=== PATIENT | female | born 1965 | race Caucasian/White ===

== ENCOUNTER 2019-05-14 00:16 | Emergency (ER) | payer BC ==
[2019-05-14] MEDS ORDERED: Metoclopramide IV* 5 MG/ML 2 ML VIAL IV SLOW PU ONE (02:49)
[2019-05-14] MEDS ORDERED: NS 0.9% 1000 ML** 1,000 ML IV ONE (02:49)
[2019-05-14] MEDS ORDERED: Morphine 4 MG/ML VIAL (1 ml) 4 MG/ML VIAL IV ONE ×2 (02:49→09:17)
[2019-05-14] MEDS ORDERED: Pantoprazole IV* 40 MG IV ONE (02:50)
[2019-05-14] MEDS ORDERED: Al Hydrox/Mg Hydrox/Simet LIQ* 30 ML UDC PO ONE ×2 (02:50→09:18)
[2019-05-14] MEDS ORDERED: Lidocaine 2% VISCOUS* 15 ML UDC PO ONE (02:50)
[2019-05-14 03:41] LABS: ABS Eosinophils 0.1 10^3/ul (0-0.6); ABS Lymphocytes 1.2 10^3/ul (1.0-4.8); ABS Monocytes 0.7 10^3/ul (0-0.8); ABS Neutrophils 7.2 10^3/ul (1.5-7.7); Eosinophil % 0.8 %; Hematocrit 44 % (35-47); Hemoglobin 14.5 g/dL (12.0-16.0); Lymphocyte % 12.8 %; Mean Corpuscular HGB Conc 33 g/dL (31-36); Mean Corpuscular Hemoglobin 28 pg (27-31); Mean Corpuscular Volume 85 fL (80-97); Mean Platelet Volume 8.9 fL (7.4-10.4); Platelet Count 238 10^3/uL (150-450); Red Blood Count 5.18 10^6 /uL (3.70-4.87); Red Cell Distribution Width 14 % (10-15); White Blood Count 9.1 10^3/uL (3.5-10.8)
[2019-05-14 03:51] LABS: Activated Partial Thrombo Time 37.4 seconds (26.0-38.0); INR 1.1 (0.82-1.09)
[2019-05-14 04:07] LABS: Albumin 4.3 g/dL (3.2-5.2); Albumin/Globulin Ratio 1.3 (1-3); BUN/Creatinine Ratio 12.1 (8-20); C Reactive Protein 40.08 mg/L (<8.01); Calcium 9.8 mg/dL (8.6-10.3); EGFR African American 58.7 (>60); EGFR Non-African American 48.5 (>60); Globulin 3.4 g/dL (2-4); Potassium 3.7 mmol/L (3.5-5.0); Total Bilirubin 0.5 mg/dL (0.2-1.0); Total Protein 7.7 g/dL (6.4-8.9)
--- NOTE | 2019-05-14 07:11 | ED ---
Progress - Progress Note Progress Note: This pt is a sign-out from Dr. Constantino to Dr. Rosa at shift change on 05/04/19 at 0700, pending disposition, awaiting US and lab results. I introduced myself to pt's - pt sleeping, NAD Gallbladder US, as read by radiologist IMPRESSION: Normal sonographic appearance of the gallbladder. Dr. Rosa has reviewed this report. Re-Evaluation - Re-Evaluation First Eval Re-Evaluation Time: 07:07 Comment: Saw pt and she is resting. Pt is waiting for an ultrasound and second troponin. Second Eval Re-Evaluation Time: 08:46 Comment: Reviewed results with the patient. Had a very long conversation with the patient. Pt with a h/o gastritis, inflammation. Pt states she had a endoscope in [place] in January - tool prilosec for 1 month with improvement- no intermittently take Pepcid. Pt took yesterday without improvement. Pt is anxious to go home because pain recurring - pt declined offer for OBV admission. After length discussionof food triggers, treatment approaches - will mogul operator her morphine and Maalox now with bland po. Pt was offered admission but she declined. Plan is to discharge patient with rx for prilosec. Pt to return of sx return Third Eval Re-Evaluation Time: 10:02 Change: Improved Comment: Patient is feeling better and is more comfortable. Patient is ready to go home. Course/Dx - Diagnoses Provider Diagnoses: Epigastric pain Discharge - Sign-Out/Discharge Documenting (check all that apply): Patient Departure - Discharge home, Receiving Sign-Out Receiving patient FROM: Ky Constantino Patient Received Moderate/Deep Sedation with Procedure: No - Discharge Plan Condition: Good Disposition: HOME Prescriptions: HYDROcodone/ACETAMIN 5-325 MG* [Spring 5-325 TAB*] 12 tab PO Q8H PRN #10 tab MDD 6 PRN Reason: Severe Pain Omeprazole CAP (NF) [Prilosec CAP* 20 MG] 40 mg PO DAILY #28 zach. Patient Education Materials: Epigastric Pain (ED) Referrals: [facility]ICIAN REFERRAL [Outside] Kimmie Jarrell MD [Medical Doctor] - Additional Instructions: - take prilosec exactly as prescribed - eat small, bland portion of food every 2-3 hours - avoid spicy food, acidic food, tomato based food, citric food, caffinate and carbonate beverages - Okay to take Malaox every 6 hours - It is strongly recommended you contact the physician referral center for assistance establishing with a new primary care provider as well as consider seeing a local car dropper - alternatively, you should contact your GI specialist in [place] today. If your pain is uncontrolled, you have uncontrolled vomiting, fevers, or other concerns it is recommended you return to the emergency department f - Billing Disposition and Condition Condition: GOOD Disposition: Home - Attestation Statements Document Initiated by Noris: Yes Documenting Scribe: Shirley Baird Provider For Whom Tomibsonia is Documenting (Include Credential): Fang Rosa MD Scribe Attestation: Shirley George, scribed for Fang Rosa MD on 05/15/19 at 0339. Scribe Documentation Reviewed: Yes Provider Attestation: The documentation as recorded by the Shirley mcduffie accurately reflects the service I personally performed and the decisions made by me, Fang Rosa MD Status of Scribe Document: Viewed
--- NOTE | 2019-05-14 07:30 | ED ---
HPI Chest Pain - HPI Summary HPI Summary: This patient is a 53 year old F presenting to [facility] with a chief complaint of worsening CP since last night. Pt states this CP radiates to her back sometimes. Patient reports burping, epigastric/RUQ/right upper back pain, and photophobia. Patient denies N/V/D, fever. The patient rates the pain 6/10 in severity. Symptoms aggravated by nothing. Symptoms alleviated by nothing. Pt previously had surgery for ruptured appendix. - History of Current Complaint Chief Complaint: EDAbdPain Time Seen by Provider: 05/14/19 02:39 Hx Obtained From: Patient Onset/Duration: Started Days Ago - 1 Timing: Lasting Days - 1 Initial Severity: Moderate Current Severity: Moderate Pain Intensity: 6 Pain Scale Used: 0-10 Numeric Chest Pain Radiates: Yes Chest Pain Radiates To:: Back - sometimes Aggravating Factor(s): Nothing Alleviating Factor(s): Nothing Associated Signs and Symptoms: Positive: Chest Pain, Abdominal Pain - epigastric /RUQ, Other: - positive - burping, right upper back pain, photophobia. negative - diarrhea. Negative: Fever, Nausea, Vomiting - Additional Pertinent History Primary Care Physician: [id number] - Allergy/Home Medications Allergies/Adverse Reactions: Allergies Allergy/AdvReac Type Severity Reaction Status Date / Time tetracycline Allergy Headache Verified 05/14/19 00:25 PMH/Surg Hx/FS Hx/Imm Hx Previously Healthy: No Endocrine/Hematology History: Denies: Hx Diabetes Cardiovascular History: Denies: Hx Hypertension, Hx Pacemaker/ICD Respiratory History: Denies: Hx Asthma Sensory History: Reports: Hx Contacts or Glasses Denies: Hx Hearing Aid Opthamlomology History: Reports: Hx Contacts or Glasses Psychiatric History: Denies: Hx Panic Disorder - Surgical History Surgical History: Yes Surgery Procedure, Year, and Place: Appendectomy in 2017 Infectious Disease History: No Infectious Disease History: Denies: Traveled Outside the [place] in Last 30 Days - Family History Known Family History: Positive: None Family History: FHx of glaucoma - Social History Alcohol Use: Occasionally Hx Substance Use: No Substance Use Type: Reports: None Hx Tobacco Use: Yes Smoking Status (MU): Former Smoker Review of Systems Negative: Fever Positive: Photophobia Positive: Chest Pain - sometimes radiates to her back Respiratory: Other - positive - burping Positive: Abdominal Pain - epigastric/RUQ. Negative: Vomiting, Diarrhea, Nausea Musculoskeletal: Other - positive - right upper back pain All Other Systems Reviewed And Are Negative: Yes Physical Exam - Summary Physical Exam Summary: VITAL SIGNS: Reviewed. GENERAL: Patient is a well-developed and nourished FEMALE who is lying comfortable in the stretcher. Patient is not in any acute respiratory distress. HEAD AND FACE: No signs of trauma. No ecchymosis, hematomas or skull depressions. No sinus tenderness. EYES: PERRLA, EOMI x 2, No injected conjunctiva, no nystagmus. EARS: Hearing grossly intact. Ear canals and tympanic membranes are within normal limits. MOUTH: Oropharynx within normal limits. NECK: Supple, trachea is midline, no adenopathy, no JVD, no carotid bruit, no c- spine tenderness, neck with full ROM CHEST: Symmetric, no tenderness at palpation LUNGS: Clear to auscultation bilaterally. No wheezing or crackles. CVS: Regular rate and rhythm, S1 and S2 present, no murmurs or gallops appreciated. ABDOMEN: Soft, epigastric tenderness. No signs of distention. No rebound no guarding, and no masses palpated. Bowel sounds are normal. EXTREMITIES: FROM in all major joints, no edema, no cyanosis or clubbing. NEURO: Alert and oriented x 3. No acute neurological deficits. Speech is normal and follows commands. SKIN: Dry and warm Triage Information Reviewed: Yes Vital Signs On Initial Exam: Initial Vitals Temp Pulse Resp BP Pulse Ox 98.2 F 120 20 144/99 96 05/14/19 00:20 05/14/19 00:20 05/14/19 00:20 05/14/19 00:20 05/14/19 00:20 Vital Signs Reviewed: Yes Diagnostics - Vital Signs Vital Signs Temp Pulse Resp BP Pulse Ox 05/14/19 06:52 99 F 05/14/19 06:51 99 135/87 99 05/14/19 05:00 129/78 05/14/19 04:37 89 146/84 97 05/14/19 04:07 94 124/86 94 05/14/19 04:01 95 93 05/14/19 03:37 107 150/98 98 05/14/19 03:27 16 05/14/19 03:01 14 05/14/19 02:59 9 05/14/19 00:20 98.2 F 120 20 144/99 96 - Laboratory Lab Results: Lab Results 05/14/19 05/14/19 05/14/19 Range/Units 03:11 03:11 03:11 WBC 9.1 (3.5-10.8) 10^3/uL RBC 5.18 H (3.70-4.87) 10^6 /uL Hgb 14.5 (12.0-16.0) g/dL Hct 44 (35-47) % MCV 85 (80-97) fL MCH 28 (27-31) pg MCHC 33 (31-36) g/dL RDW 14 (10-15) % Plt Count 238 (150-450) 10^3/uL MPV 8.9 (7.4-10.4) fL Neut % (Auto) 78.7 % Lymph % (Auto) 12.8 % [place] % (Auto) 7.4 % Eos % (Auto) 0.8 % Baso % (Auto) 0.3 % Absolute Neuts (auto) 7.2 (1.5-7.7) 10^3/ul Absolute Lymphs (auto) 1.2 (1.0-4.8) 10^3/ul Absolute Monos (auto) 0.7 (0-0.8) 10^3/ul Absolute Eos (auto) 0.1 (0-0.6) 10^3/ul Absolute Basos (auto) 0.0 (0-0.2) 10^3/ul Absolute Nucleated RBC 0.0 10^3/ul Nucleated RBC % 0.0 INR (Anticoag Therapy) 1.10 H (0.82-1.09) APTT 37.4 (26.0-38.0) seconds Sodium 139 (135-145) mmol/L Potassium 3.7 (3.5-5.0) mmol/L Chloride 105 (101-111) mmol/L Carbon Dioxide 26 (22-32) mmol/L Anion Gap 8 (2-11) mmol/L BUN 14 (6-24) mg/dL Creatinine 1.16 H (0.51-0.95) mg/dL Est GFR ( Amer) 58.7 (>60) Est GFR (Non-Af Amer) 48.5 (>60) BUN/Creatinine Ratio 12.1 (8-20) Glucose 127 H (70-100) mg/dL Calcium 9.8 (8.6-10.3) mg/dL Total Bilirubin 0.50 (0.2-1.0) mg/dL AST 16 (13-39) U/L ALT 20 (7-52) U/L Alkaline Phosphatase 68 (34-104) U/L Troponin I 0.00 (<0.04) ng/mL C-Reactive Protein 40.08 H (<8.01) mg/L Total Protein 7.7 (6.4-8.9) g/dL Albumin 4.3 (3.2-5.2) g/dL Globulin 3.4 (2-4) g/dL Albumin/Globulin Ratio 1.3 (1-3) Amylase 87 (29-103) U/L Lipase 54 (11.0-82.0) U/L / Range/Units 06:47 WBC (3.5-10.8) 10^3/uL RBC (3.70-4.87) 10^6 /uL Hgb (12.0-16.0) g/dL Hct (35-47) % MCV (80-97) fL MCH (27-31) pg MCHC (31-36) g/dL RDW (10-15) % Plt Count (150-450) 10^3/uL MPV (7.4-10.4) fL Neut % (Auto) % Lymph % (Auto) % [place] % (Auto) % Eos % (Auto) % Baso % (Auto) % Absolute Neuts (auto) (1.5-7.7) 10^3/ul Absolute Lymphs (auto) (1.0-4.8) 10^3/ul Absolute Monos (auto) (0-0.8) 10^3/ul Absolute Eos (auto) (0-0.6) 10^3/ul Absolute Basos (auto) (0-0.2) 10^3/ul Absolute Nucleated RBC 10^3/ul Nucleated RBC % INR (Anticoag Therapy) (0.82-1.09) APTT (26.0-38.0) seconds Sodium (135-145) mmol/L Potassium (3.5-5.0) mmol/L Chloride (101-111) mmol/L Carbon Dioxide (22-32) mmol/L Anion Gap (2-11) mmol/L BUN (6-24) mg/dL Creatinine (0.51-0.95) mg/dL Est GFR ( Amer) (>60) Est GFR (Non-Af Amer) (>60) BUN/Creatinine Ratio (8-20) Glucose (70-100) mg/dL Calcium (8.6-10.3) mg/dL Total Bilirubin (0.2-1.0) mg/dL AST (13-39) U/L ALT (7-52) U/L Alkaline Phosphatase (34-104) U/L Troponin I 0.00 (<0.04) ng/mL C-Reactive Protein (<8.01) mg/L Total Protein (6.4-8.9) g/dL Albumin (3.2-5.2) g/dL Globulin (2-4) g/dL Albumin/Globulin Ratio (1-3) Amylase (29-103) U/L Lipase (11.0-82.0) U/L Result Diagrams: 05/14/19 03:11 05/14/19 03:11 Lab Statement: Any lab studies that have been ordered have been reviewed, and results considered in the medical decision making process. - EKG 0247 Cardiac Rate: Tachycardia - 110 BPM EKG Rhythm: Sinus Rhythm Summary of EKG Findings: sinus rhythm, 110 BPM, normal axis, normal interval, no ischemic changes. Re-Evaluation - Re-Evaluation First Eval Re-Evaluation Time: 07:07 Comment: Saw pt and she is resting. Pt is waiting for an ultrasound and second troponin. Second Eval Re-Evaluation Time: 08:46 Comment: Reviewed results with the patient. Had a very long conversation with the patient. Pt with a h/o gastritis, inflammation. Pt states she had a endoscope in [place] in January - tool prilosec for 1 month with improvement- no intermittently take Pepcid. Pt took yesterday without improvement. Pt is anxious to go home because pain recurring - pt declined offer for OBV admission. After length discussionof food triggers, treatment approaches - will high voltage electrician her morphine and Maalox now with bland po. Pt was offered admission but she declined. Plan is to discharge patient with rx for prilosec. Pt to return of sx return Third Eval Re-Evaluation Time: 10:02 Change: Improved Comment: Patient is feeling better and is more comfortable. Patient is ready to go home. Chest Pain Course/Dx - Course Course Of Treatment: This patient is a 53 year old F presenting to [facility] with a chief complaint of worsening CP since last night. Pt states this CP radiates to her back sometimes. Patient reports burping, epigastric/RUQ/right upper back pain, and photophobia. Patient denies N/V/D, fever. The patient rates the pain 6 /10 in severity. Symptoms aggravated by nothing. Symptoms alleviated by nothing. Pt previously had surgery for ruptured appendix. Physical exam shows epigastric tenderness. Lab results show RBC 5.18, INR 1.10, creatinine 1.16, glucose 127, c-reactive protein 40.08. EKG at 0247 shows sinus rhythm, 110 BPM , normal axis, normal interval, no ischemic changes. During ED course, the pt was given Maalox Plus, Xylocaine 2% Viscous, Reglan, fluids, and Protonix. This pt was signed out from Dr. Constantino to Dr. Rosa at 0700 05/14/19 shift change pending US results and disposition. - Diagnoses Provider Diagnoses: Epigastric pain Discharge - Sign-Out/Discharge Documenting (check all that apply): Patient Departure, Sign-Out Patient Signing out patient TO: Fang Rosa - This pt was signed out from Dr. Constantino to Dr. Rosa at 0700 05/14/19 shift change pending US results and disposition. Patient Received Moderate/Deep Sedation with Procedure: No - Discharge Plan Condition: Good Disposition: HOME Prescriptions: HYDROcodone/ACETAMIN 5-325 MG* [[place] 5-325 TAB*] 12 tab PO Q8H PRN #10 tab MDD 6 PRN Reason: Severe Pain Omeprazole CAP (NF) [Prilosec CAP* 20 MG] 40 mg PO DAILY #28 zach. Patient Education Materials: Epigastric Pain (ED) Referrals: [facility] [Outside] Kimmie Jarrell MD [Medical Doctor] - Additional Instructions: - take prilosec exactly as prescribed - eat small, bland portion of food every 2-3 hours - avoid spicy food, acidic food, tomato based food, citric food, caffinate and carbonate beverages - Okay to take Malaox every 6 hours - It is strongly recommended you contact the physician referral center for assistance establishing with a new primary care provider as well as consider seeing a local welder gas - alternatively, you should contact your GI specialist in [place] today. If your pain is uncontrolled, you have uncontrolled vomiting, fevers, or other concerns it is recommended you return to the emergency department f - Billing Disposition and Condition Condition: GOOD Disposition: Home - Attestation Statements Document Initiated by Noris: Yes Documenting Scribe: Aguila Porter Provider For Whom Noris is Documenting (Include Credential): Dr. Ky Constantino MD Scribe Attestation: I, Aguila Porter scribed for Dr. Ky Constantino MD on 05/15/19 at 2012. Scribe Documentation Reviewed: Yes Provider Attestation: The documentation as recorded by the Aguila mcduffie accurately reflects the service I personally performed and the decisions made by me, Dr. Ky Constantino MD Status of Scribe Document: Viewed
[2019-05-14 08:59] LABS: Urine Appearance Clear; Urine Bilirubin Negative (Negative); Urine Blood Negative (Negative); Urine Color Yellow; Urine Glucose Negative (Negative); Urine Ketones 1+ (Negative); Urine Nitrite Negative (Negative); Urine Protein Negative (Negative); Urine Specific Gravity 1.019 (1.010-1.030); Urine Urobilinogen Negative (Negative)
[2019-05-14 10:21] VITALS: BP 122/82
== END 2019-05-14 10:15 | disposition home or self-care (01) ==
LOC: ED 00:16
DX: R10.13 Epigastric pain (principal); Z88.1 Allergy status to other antibiotic agents; Z87.891 Personal history of nicotine dependence
CPT/HCPCS: 36415; 76705; 80053; 81003; 82150; 83690; 84484; 85025; 85610; 85730; 86140; 93005; 96361; 96374; 96375; 96376; 99284; A9270-GY; J2270; J2765